=== PATIENT | female | born 1995 | race Caucasian/White ===

== ENCOUNTER 2024-09-10 08:34 | Emergency (ER) | payer OTHER, SELFPAY ==
[2024-09-10 09:11] VITALS: BP 109/71; PULSE 75; RESP 16; TEMP 36.6; O2SAT 100
[2024-09-10 09:24] LABS: EDSTREPNEGPOS1 Negative (Negative)
--- NOTE | 2024-09-10 09:52 | ED.URI ---
HPI - URI/Sore Throat General Chief Complaint: Upper Respiratory Infection Stated Complaint: Sore Throat Time Seen by Provider: 09/10/24 09:35 History of Present Illness HPI Narrative: 29-year-old female presents [facility] complaining swollen lymph node to the right side of her neck. Patient says she knows said approximately 2 days ago. Patient reports that is tender to palpate. Patient denies any upper respiratory symptoms, cough, fevers, body aches, chills, nausea, vomiting, vision changes, diarrhea, any other symptoms. Patient is not trying [id number]. Patient reports yesterday she had headache to the back of her head but states that has subsided. Patient denies any hiking or being out in the [place]. Related Data Home Medications ?Medication ?Instructions ?Recorded ?Confirmed ?Last Taken ?Type phentermine 37.5 mg tablet 37.5 mg PO PRN cravings 09/10/24 09/10/24 Unknown History tirzepatide (weight loss) 5 mg/0.5 5 mg subcut WEEKLY 09/10/24 09/10/24 Unknown History mL subcutaneous pen injector (Zepbound) Allergies Allergy/AdvReac Type Severity Reaction Status Date / Time No Known Allergies Allergy Verified 09/10/24 09:15 Review of Systems Review of Systems: CONSTITUTIONAL: Denies fever, chills, or sweats. EYES: Denies visual changes, redness, or discharge. ENT: Denies rhinorrhea, congestion, sore throat, or otalgia. Positive swollen lymph node. CARDIOVASCULAR: Denies chest pain, palpitations, or edema. RESPIRATORY: Denies cough or dyspnea. GASTROINTESTINAL: Denies abdominal pain, nausea, vomiting, or diarrhea. GENITOURINARY: Denies dysuria or hematuria. SKIN: Denies rash or itching. MUSCULOSKELETAL: Denies back pain, joint pain, or myalgia. NEUROLOGIC: Denies headache, numbness, or weakness. PSYCHIATRIC: Denies anxiety or depression. All other systems reviewed are negative, except as documented in HPI. Exam Narrative: GENERAL: This is a well-nourished, well-developed adult, in no apparent distress. They are non ill-appearing, nontoxic appearing. HEAD: normocephalic, atraumatic. EYES: Sclera clear/white. Vision is grossly intact. EARS: External ears normal, auditory canals clear and without drainage, TMs without erythema or perforation. Hearing grossly intact. NOSE: External nose normal with no obvious nasal discharge, nasal turbinates without redness, no rhinorrhea. THROAT: Mucous membranes moist, posterior pharynx without erythema or exudate. Cobblestone appearing. Uvula is midline NECK: Neck supple, tender lymph node to the super mandibular region of the right side of the neck, no obvious swelling. No other lymphadenopathy present. No masses or thyromegaly. CARDIOVASCULAR: Regular rate and rhythm without murmurs, gallops, or rubs. RESPIRATORY: Clear to auscultation. Breath sounds equal bilaterally. No wheezes, rales, or rhonchi. SKIN: warm, Dry, intact with no suspicious lesions or rash, good texture and turgor. NEURO: awake, alert, and oriented to person, place and time. There were no obvious focal neurologic abnormalities. EXTREMITIES: No joint tenderness, effusion, or edema noted. BACK: Nontender without deformity. No CVA tenderness. Course Course Level of Care: Express Care Visit Vital Signs Vital signs: Vital Signs Temperature 97.9 F 09/10/24 09:11 Pulse Rate 75 09/10/24 09:11 Respiratory Rate 16 09/10/24 09:11 Blood Pressure 109/71 09/10/24 09:11 Pulse Oximetry 100 09/10/24 09:11 Temperature 97.9 F 09/10/24 09:11 Pulse Rate 75 09/10/24 09:11 Respiratory Rate 16 09/10/24 09:11 Blood Pressure 109/71 09/10/24 09:11 Pulse Oximetry 100 09/10/24 09:11 MDM - URI/Sore Throat MDM Narrative Medical decision making narrative: Rapid strep negative. Throat culture pending. Tender lymph node to super mandibular region of the right-sided neck. Go ahead and treat for lymphangitis with a Augmentin. Advised patient if lymph node symptoms do not improve that she needs to have a close follow-up with her PCP for further evaluation and management, and possible blood work. Discussed physical exam findings. Advised supportive measures and signs/symptoms to go to the ER. Pt is appropriate for outpt treatment and f/u. Differential Diagnosis Differential diagnosis: Likely upper respiratory infection, viral infection, pharyngitis and other (Lymphadenopathy, lymphangitis) Lab Data Attestation: I reviewed the patient's lab results. Labs: Lab Results 09/10/24 Range/Units 09:21 POC Grp A Strep Screen Negative (Negative) Discharge Plan Discharge Clinical Impression: Lymphangitis of neck Patient Disposition: Home Condition: Stable Instructions: Antibiotic Form, Lymphangitis (ED) Additional Instructions: Rapid strep negative. Throat culture will be sent off and if it is positive for strep you will be contacted. Please take Augmentin as directed. You may take Tylenol or ibuprofen as needed for pain or fevers. Follow-up with your PCP in 3-5 days if your lymph node does not get better. Please go to the ER for any worsening symptoms such as breathing problems, fevers, chest pains, or any other concerns. Patient Language: [place]une[place] Prescriptions: New amoxicillin-pot clavulanate 875-125 mg tablet 1 tablet PO Q12H 7 Days Qty: 14 0RF No Action Zepbound 5 mg/0.5 mL pen injector 5 mg subcut WEEKLY phentermine 37.5 mg tablet 37.5 mg PO PRN Follow-up/Referrals: PHYSICIAN,OPERATIONS MANAGER/COORDINATOR [Primary Care Provider] - Time of Disposition: 09:41
== END 2024-09-10 09:44 | disposition home or self-care (01) ==
DX: I89.1 Lymphangitis (principal)
CPT/HCPCS: 87081; 87880; 99203; G0463